=== PATIENT | female | born 1990 | race Caucasian/White ===

== ENCOUNTER 2018-09-04 05:06 | Emergency (ER) | payer SELFPAY ==
--- NOTE | 2018-09-04 05:36 | ER Document Report ---
HPI - HPI Patient complains to provider of: Finger infection Time Seen by Provider: 09/04/18 05:24 Onset: Other - 2 weeks Onset/Duration: Worse Quality of pain: Sharp Pain Level: 5 Context: Patient states that she had some unknown puncture wound her right third finger about 2 weeks ago. Patient states that the area has gradually started to look infected. Patient states that over the past few days of her right second finger seems to be getting infected as well although she denies any puncture wound to this finger. Patient denies any history of MRSA but does acknowledge a history of hepatitis C. Patient denies any history of IV drug abuse. Associated Symptoms: denies: Fever Exacerbated by: Movement Relieved by: Denies Similar symptoms previously: No Recently seen / treated by doctor: No - ROS ROS below otherwise negative: Yes Systems Reviewed and Negative: Yes All other systems reviewed and negative - CONSTITUTIONAL Constitutional: DENIES: Fever, Chills - NEURO Neurology: DENIES: Weakness - GASTROINTESTINAL Gastrointestinal: DENIES: Nausea - MUSCULOSKELETAL Musculoskeletal: REPORTS: Extremity pain - Right second and third finger, Swelling - DERM Skin Color: Erythema Notes: Abscess to right third finger Past Medical History - General Information source: Patient - Social History Smoking Status: Current Every Day Smoker Frequency of alcohol use: None Drug Abuse: Marijuana, Other - +IV track ruff, patient denies history of IVDA Occupation: None Family History: Reviewed & Not Pertinent Infectious Medical History: Reports: Hx Hepatitis - Hepatitis C Past Surgical History: Reports: Hx Cholecystectomy Vertical Provider Document - CONSTITUTIONAL Agree With Documented VS: Yes Exam Limitations: No Limitations General Appearance: WD/WN, No Apparent Distress - INFECTION CONTROL TRAVEL OUTSIDE OF THE [place] IN LAST 30 DAYS: No - HEENT HEENT: Atraumatic, Normocephalic - NECK Neck: Normal Inspection - RESPIRATORY Respiratory: Breath Sounds Normal, No Respiratory Distress - CARDIOVASCULAR Pulses: Normal: Radial - BACK Back: Normal Inspection - MUSCULOSKELETAL/EXTREMETIES Musculoskeletal/Extremeties: MAEW, FROM, Tender - Tenderness, warmth and erythema to reveal aspect of middle phalanx of right second finger, patient with abscess to the radial aspect of right third finger, no lymphangitis, no concern for tenosynovitis - NEURO Level of Consciousness: Awake, Alert, Appropriate Motor/Sensory: No Motor Deficit, No Sensory Deficit - DERM Integumentary: Warm, Dry Course - Re-evaluation Re-evalutation: 09/04/18 06:19 Incision and drainage procedure performed to right third finger. Purulent drainage cultured. Attempted to milk drainage to the incisional opening. Patient could not tolerate provider doing this although patient immediately was able to squeeze on her finger without guarding. Patient states that she is not able to tolerate any additional incision and drainage procedure due to her tenderness. Patient jerking hand away from provider and moving bloodied incision about. Discussed with patient concern about possible unintended injury as well as body fluid exposure. Patient did have significant amount of drainage from the wound. Patient encouraged to be compliant with antibiotics. Discussed worsening symptoms to return for, patient encouraged to follow-up with orthopedic surgeon for further evaluation. 09/04/18 06:24 Dr. Prabhakar states that patient did report to him that she is using IV drugs. Dr. Prabhakar requests that patient be given a prescription for Narcan at discharge , as he suspects patient will likely leave here and shoot up heroin due to her finger pain at this time - Vital Signs Vital signs: Temp Pulse Resp BP Pulse Ox 98.3 F 104 H 16 146/79 H 99 09/04/18 05:11 09/04/18 05:11 09/04/18 05:11 09/04/18 05:11 09/04/18 05:11 Procedures - Incision and Drainage Right Finger 3rd digit Type: Simple Anesthetic type: 1% Lidocaine Blade size: 11 I&D procedure: Betadine prep applied Incision Method: Incision made by scalpel Amount/type of drainage: Small amount of purulent drainage Discharge - Discharge Clinical Impression: Abscess of finger of right hand, IV drug user Condition: Stable Instructions: Abscess ([facility]), Cephalexin ([facility]), Post Incision and Drainage, Tetanus Immunization Given ([facility]), Trimethoprim-Sulfa ([facility]) Additional Instructions: Return immediately for any new or worsening symptoms Followup with your primary care provider, call tomorrow to make a followup appointment Stop injecting IV drugs Culture is pending, we will call if you need any different treatment Prescriptions: Cephalexin Monohydrate [Keflex 500 mg Capsule] 500 mg PO Q6H 7 Days capsule Naloxone HCl [Narcan] 4 mg NS PRN PRN #1 unit PRN Reason: Naproxen [Naprosyn 250 Nmg Tablet] 1 tab PO BID #14 tablet Sulfamethoxazole/Trimethoprim [Bactrim Ds Tablet] 1 each PO BID #20 tablet Forms: Smoking Cessation Education Referrals: MARIA DE JESUS WINTER DO [ACTIVE STAFF] - Follow up tomorrow
[2018-09-04] MEDS ORDERED: SULFAMETHOXAZOLE/TRIMETHOPRIM 800-160 MG TABLET PO ONE (05:40)
[2018-09-04] MEDS ORDERED: CEPHALEXIN 500 MG CAPSULE PO ONE (05:40)
[2018-09-04] MEDS ORDERED: DIPH/PERTUSS(ACELL)/TETANUS VAC/PF 0.5 ML SYR (>=10YO) IM ONE (05:40)
[2018-09-04] MEDS ORDERED: IBUPROFEN 800 MG TABLET PO ONE (05:42)
[2018-09-04 06:27] VITALS: BP 125/93
== END 2018-09-04 06:29 | disposition home or self-care (01) ==
LOC: ER 05:06
DX: L02.511 Cutaneous abscess of right hand (principal); M79.644 Pain in right finger(s); F12.10 Cannabis abuse, uncomplicated; F19.10 Other psychoactive substance abuse, uncomplicated
CPT/HCPCS: 87070; 87075; 87077; 87186; 87205; 90471; 90715; 99283